=== PATIENT | male | born 1970 | race African-American/Black ===

== ENCOUNTER → 2017-11-06 | Outpatient (CLI) | payer BC ==
--- NOTE | 2017-11-07 08:00 | XCELERA REPORT ---
[address] [address] Lower Extremity Venous Evaluation Name: THOM CHERRY Age: 47 yrs Gender: Male : 1970 Patient Status: Outpatient Patient Location: Study Date: 11/06/2017 04:17 PM Procedure: Color flow and duplex imaging of the veins of the left lower extremity as well as the right Common Femoral vein. Reason For Study: LLE SWELLING Ordering Physician: KENZIE GORDON Performed By: Darshan Che Right Sided Venous Evaluation The right common femoral vein is fully compressible. Spontaneous and phasic flow is present in the right common femoral vein. Left Sided Venous Evaluation Normal vessel filling wall to wall, compression and augmentation as well as Colour flow down to the infrageniculate veins. Interpretation Summary No duplex evidence of DVT or obstruction in the left lower extremity nor in the right Common Femoral vein. : KENZIE GORDON > Morales Bach
== END ==
LOC: SP 15:58
PROVIDERS: ATTEND Podiatrist Foot & Ankle Surgery
DX: I82.402 Acute embolism and thrombosis of unspecified deep veins of left lower extremity (principal)
CPT/HCPCS: 93971

== ENCOUNTER → 2018-03-15 | Outpatient (CLI) | payer BC ==
[2018-03-15 15:36] LABS: ABSOLUTE EOSINOPHILS # (AUTO) 0.1 10^3/uL (0.0-0.6); ABSOLUTE LYMPHOCYTES (AUTO) 1.7 10^3/uL (0.5-4.7); ABSOLUTE MONOCYTES (AUTO) 0.4 10^3/uL (0.1-1.4); ABSOLUTE NEUT (AUTO) 3.6 10^3/uL (1.7-8.2); BASOPHILS % (AUTO) 0.5 % (0-2); EOSINOPHILS % (AUTO) 2.4 % (0-6); HEMATOCRIT 51.2 % (37.9-51.0); HEMOGLOBIN 17.2 g/dL (13.5-17.0); MEAN CORPUSCULAR HEMOGLOBIN 27.2 pg (27.0-33.4); MEAN CORPUSCULAR HGB CONC 33.6 g/dL (32.0-36.0); MEAN CORPUSCULAR VOLUME 81 fl (80-97); MONOCYTES % (AUTO) 6.8 % (3-13); PLATELET COUNT 200 10^3/uL (150-450); RED BLOOD COUNT 6.32 10^6/uL (4.35-5.55); RED CELL DISTRIBUTION WIDTH 15.5 % (11.5-14.0); SEGMENTED NEUTROPHILS % (AUTO) 61.3 % (42-78); TOTAL CELLS COUNTED % (AUTO) 100 %; WHITE BLOOD COUNT 5.8 10^3/uL (4.0-10.5)
[2018-03-15 15:46] LABS: APPEARANCE,URINE CLEAR; BILIRUBIN,URINE NEGATIVE (NEGATIVE); COLOR,URINE YELLOW; GLUCOSE, URINE NEGATIVE (NEGATIVE); KETONES,URINE NEGATIVE (NEGATIVE); LEUKOCYTE ESTERASE,URINE NEGATIVE (NEGATIVE); NITRITE,URINE NEGATIVE (NEGATIVE); PROTEIN,URINE NEGATIVE (NEGATIVE); URINE SPECIFIC GRAVITY 1.018
[2018-03-15 15:47] LABS: INTERNATIONAL RATION (INR) 1.13; PROTHROMBIN TIME 15.1 SEC (11.4-15.4)
[2018-03-15 15:48] LABS: PARTIAL THROMBOPLASTIN TIME 34.2 SEC (23.5-35.8)
== END ==
LOC: OD 14:41
PROVIDERS: ATTEND Pain Medicine Interventional Pain Medicine
DX: Z79.01 Long term (current) use of anticoagulants (principal)
CPT/HCPCS: 36415; 81001; 85025; 85610; 85730

== ENCOUNTER 2018-04-23 08:43 | Observation (INO) | payer BC ==
--- NOTE | 2018-04-18 10:35 | RADIOLOGY REPORT (SQ) ---
EXAM DESCRIPTION: CHEST PA/LATERAL COMPLETED DATE/TIME: 04/18/2018 10:26 am REASON FOR STUDY: PRE-OP COMPARISON: None. EXAM PARAMETERS: NUMBER OF VIEWS: two views TECHNIQUE: Digital Frontal and Lateral radiographic views of the chest acquired. RADIATION DOSE: NA LIMITATIONS: none FINDINGS: LUNGS AND PLEURA: No opacities, masses or pneumothorax. No pleural effusion. MEDIASTINUM AND HILAR STRUCTURES: No masses or contour abnormalities. HEART AND VASCULAR STRUCTURES: Heart normal size. No evidence for failure. BONES: No acute findings. HARDWARE: None in the chest. OTHER: No other significant finding. IMPRESSION: 1. NO SIGNIFICANT RADIOGRAPHIC FINDING IN THE CHEST. TECHNICAL DOCUMENTATION: JOB ID: [id number] [employer]- All Rights Reserved Reading location - IP/workstation name: [facility]
[2018-04-18 10:55] LABS: HEMATOCRIT 53.9 % (37.9-51.0); HEMOGLOBIN 18.2 g/dL (13.5-17.0); MEAN CORPUSCULAR HEMOGLOBIN 27.5 pg (27.0-33.4); MEAN CORPUSCULAR HGB CONC 33.7 g/dL (32.0-36.0); MEAN CORPUSCULAR VOLUME 82 fl (80-97); PLATELET COUNT 169 10^3/uL (150-450); RED BLOOD COUNT 6.61 10^6/uL (4.35-5.55); WHITE BLOOD COUNT 7.5 10^3/uL (4.0-10.5)
[2018-04-18 10:58] LABS: APPEARANCE,URINE SLIGHTLY-CLOUDY; BILIRUBIN,URINE NEGATIVE (NEGATIVE); COLOR,URINE YELLOW; GLUCOSE, URINE NEGATIVE (NEGATIVE); KETONES,URINE NEGATIVE (NEGATIVE); LEUKOCYTE ESTERASE,URINE NEGATIVE (NEGATIVE); NITRITE,URINE NEGATIVE (NEGATIVE); PROTEIN,URINE NEGATIVE (NEGATIVE); URINE SPECIFIC GRAVITY 1.017
[2018-04-18 10:59] LABS: INTERNATIONAL RATION (INR) 1.03
[2018-04-18 11:00] LABS: PARTIAL THROMBOPLASTIN TIME 33.7 SEC (23.5-35.8)
--- NOTE | 2018-04-18 14:41 | EKG REPORT ---
SEVERITY:- NORMAL ECG - SINUS RHYTHM : Confirmed by: Betty Avila MD 18-Apr-2018 14:39:47
[~2018-04-23 08:43] MED LIST: CEFAZOLIN 1 GM/D5W RTU 1 GM/50 ML RTUPB IV ONE; CEFAZOLIN 1 GM/D5W RTU 1 GM/50 ML RTUPB IV SCH; LACTATED RINGERS 1000 ML IV PRN; LIDOCAINE 0.5% INJ-PF (5 MG/ML) 50 ML SDV SUBCUT PRN
[2018-04-23] MEDS ORDERED: LIDOCAINE 1% INJ-PF (10 MG/ML) 30 ML SDV ONE ×2 (09:28→11:51)
[2018-04-23 09:31] LABS: ABSOLUTE EOSINOPHILS # (AUTO) 0.2 10^3/uL (0.0-0.6); ABSOLUTE LYMPHOCYTES (AUTO) 1.7 10^3/uL (0.5-4.7); ABSOLUTE MONOCYTES (AUTO) 0.5 10^3/uL (0.1-1.4); ABSOLUTE NEUT (AUTO) 3.7 10^3/uL (1.7-8.2); BASOPHILS % (AUTO) 0.5 % (0-2); EOSINOPHILS % (AUTO) 2.7 % (0-6); HEMATOCRIT 52.9 % (37.9-51.0); HEMOGLOBIN 17.8 g/dL (13.5-17.0); LYMPHOCYTES % (AUTO) 28.1 % (13-45); MEAN CORPUSCULAR HEMOGLOBIN 27.3 pg (27.0-33.4); MEAN CORPUSCULAR HGB CONC 33.7 g/dL (32.0-36.0); MEAN CORPUSCULAR VOLUME 81 fl (80-97); MONOCYTES % (AUTO) 8.2 % (3-13); PLATELET COUNT 166 10^3/uL (150-450); RED BLOOD COUNT 6.52 10^6/uL (4.35-5.55); RED CELL DISTRIBUTION WIDTH 15.1 % (11.5-14.0); SEGMENTED NEUTROPHILS % (AUTO) 60.5 % (42-78); TOTAL CELLS COUNTED % (AUTO) 100 %
[2018-04-23] MEDS ORDERED: SODIUM BICARBONATE 8.4% INJ 50 MEQ/50 ML DISP.SYRIN ONE (09:31)
[2018-04-23] MEDS ORDERED: BUPIVACAINE HCL 0.5%-EPI 1:200000 INJ/PF 30 ML VIAL ONE (09:32)
[2018-04-23] MEDS ORDERED: ALBUTEROL SULFATE 0.083% NEB 2.5 MG/3 ML AMPUL NEB ONE (09:35)
[2018-04-23 09:51] LABS: ANION GAP 9 (5-19); BLOOD UREA NITROGEN 9 mg/dL (7-20); CALCIUM 9.3 mg/dL (8.4-10.2); CARBON DIOXIDE 23 mmol/L (22-30); CHLORIDE 108 mmol/L (98-107); GLUCOSE 76 mg/dL (75-110); POTASSIUM 4.2 mmol/L (3.6-5.0); SODIUM 139.6 mmol/L (137-145)
[2018-04-23] MEDS ORDERED: FENTANYL CITRATE INJ/PF 100 MCG/2 ML AMPUL ONE ×2 (10:36→11:50)
[2018-04-23] MEDS ORDERED: MIDAZOLAM 2 MG/2 ML INJ ONE ×2 (10:37→11:50)
[2018-04-23] MEDS ORDERED: PROPOFOL INJ 200 MG/20 ML VIAL IV ONE (10:37)
[2018-04-23] MEDS ORDERED: BUPIVACAINE HCL 0.25% /EPINEPHRINE INJ/PF 30 ML SDV ONE (10:44)
[2018-04-23] MEDS ORDERED: ONDANSETRON HCL INJ/PF 4 MG/2 ML SDV IV PRN ×2 (11:43→14:09)
[2018-04-23] MEDS ORDERED: FENTANYL CITRATE INJ/PF 100 MCG/2 ML AMPUL IV PRN ×3 (11:43)
[2018-04-23] MEDS ORDERED: PROMETHAZINE HCL INJ 25 MG/1 ML VIAL IV PRN (11:43)
[2018-04-23] MEDS ORDERED: MEPERIDINE HCL/PF INJ 25 MG/1 ML DISP.SYRIN IV PRN (11:43)
[2018-04-23] MEDS ORDERED: DIPHENHYDRAMINE HCL 50 MG/ML VIAL IV PRN (11:43)
[2018-04-23] MEDS ORDERED: MORPHINE SULFATE 10 MG/ML INJ ONE (11:50)
[2018-04-23] MEDS ORDERED: FLUMAZENIL INJ 0.5 MG/5 ML VIAL ONE (13:39)
[2018-04-23] MEDS ORDERED: ONDANSETRON HCL INJ/PF 4 MG/2 ML SDV ONE (13:46)
[2018-04-23] MEDS ORDERED: CEFAZOLIN INJ 1 GM VIAL ONE (13:53)
[2018-04-23] MEDS ORDERED: OXYCODONE-ACETAMINOPHEN 5-325 MG TABLET PO PRN (14:11)
[2018-04-23] MEDS ORDERED: HYDROMORPHONE HCL INJ/PF 2 MG/ML AMPULE IV PRN (14:30)
[2018-04-23] MEDS ORDERED: ACETAMINOPHEN 1,000 MG/100 ML RTUPB IV ONE (14:32)
--- NOTE | 2018-04-23 15:06 | RADIOLOGY REPORT (SQ) ---
EXAM DESCRIPTION: L SPINE 2 VIEWS; NO CHG FLUORO COMPLETED DATE/TIME: 04/23/2018 2:40 pm REASON FOR STUDY: SPINAL STIMULATOR G89.4 CHRONIC PAIN SYNDROME COMPARISON: None. FLUOROSCOPY TIME: 6.4 minutes 16 digital radiographic images saved to PACS. TECHNIQUE: Intra-operative images acquired during surgical procedure to evaluate progress. NUMBER OF IMAGES: 16 digital radiographic images LIMITATIONS: None. FINDINGS: Intra procedural imaging and fluoro during placement of a spinal cord stimulator by Dr. Nu chakraborty. Please see the operative report for further details IMPRESSION: Intra procedural imaging and fluoro COMMENT: Quality ID [id number]: Final reports for procedures using fluoroscopy that document radiation exp osure indices, or exposure time and number of fluorographic images (if radiation exposure indices are not available) Please consult full operative report of the attending physician for description of the procedure. TECHNICAL DOCUMENTATION: JOB ID: [id number] [employer]- All Rights Reserved Reading location - IP/workstation name: [facility]
--- NOTE | 2018-04-23 15:06 | RADIOLOGY REPORT (SQ) ---
EXAM DESCRIPTION: L SPINE 2 VIEWS; NO CHG FLUORO COMPLETED DATE/TIME: 04/23/2018 2:40 pm REASON FOR STUDY: SPINAL STIMULATOR G89.4 CHRONIC PAIN SYNDROME COMPARISON: None. FLUOROSCOPY TIME: 6.4 minutes 16 digital radiographic images saved to PACS. TECHNIQUE: Intra-operative images acquired during surgical procedure to evaluate progress. NUMBER OF IMAGES: 16 digital radiographic images LIMITATIONS: None. FINDINGS: Intra procedural imaging and fluoro during placement of a spinal cord stimulator by Dr. Nu chakraborty. Please see the operative report for further details IMPRESSION: Intra procedural imaging and fluoro COMMENT: Quality ID [id number]: Final reports for procedures using fluoroscopy that document radiation exp osure indices, or exposure time and number of fluorographic images (if radiation exposure indices are not available) Please consult full operative report of the attending physician for description of the procedure. TECHNICAL DOCUMENTATION: JOB ID: [id number] [employer]- All Rights Reserved Reading location - IP/workstation name: [facility]
[2018-04-23] MEDS: OXYCODONE HCL IR 5 MG TABLET PO PRN (15:58)
[2018-04-23] MEDS ORDERED: HYDROCHLOROTHIAZIDE 25 MG TABLET PO PRN (16:13)
[2018-04-23] MEDS ORDERED: DIAZEPAM 5 MG TABLET PO PRN (16:13)
[2018-04-23] MEDS ORDERED: TESTOSTERONE CYPIONATE 200 MG IM PRN (16:13)
[2018-04-23] MEDS: HYOSCYAMINE SULFATE 0.125 MG TABLET PO SCH (17:08)
[2018-04-23] MEDS: PHENYTOIN SODIUM EXTENDED 100 MG CAPSULE PO SCH (17:08)
[2018-04-23] MEDS: ALPRAZOLAM 0.5 MG TABLET PO SCH (17:08)
[2018-04-23] MEDS: OXYCODONE HCL SR 40 MG TABLET PO SCH (21:50)
[2018-04-23] MEDS: LEVETIRACETAM 500 MG TABLET PO SCH (21:51)
[2018-04-23] MEDS: CEFAZOLIN 1 GM/D5W RTU 1 GM/50 ML RTUPB IV SCH (21:53)
[2018-04-23] MEDS ORDERED: NICOTINE 7 MG/24 HR PATCH.TD24 TD ONE (22:00)
[2018-04-23] MEDS ORDERED: (PENDING PHARMACY ID) (Doxepin Hcl [Silenor] 6 MG) PO SCH (22:00)
--- NOTE | 2018-04-24 03:56 | OPERATIVE REPORT E ---
Operative Report NAME: THOM CHERRY : 1970 AGE: 47Y DATE OF SURGERY: 04/23/2018 ROOM: 210 PREOPERATIVE DIAGNOSES: 1. LEFT LOWER EXTREMITY COMPLEX REGIONAL PAIN SYNDROME. 2. LUMBAR RADICULOPATHY. 3. CHRONIC PAIN SYNDROME. POSTOPERATIVE DIAGNOSES: 1. LEFT LOWER EXTREMITY COMPLEX REGIONAL PAIN SYNDROME. 2. LUMBAR RADICULOPATHY. 3. CHRONIC PAIN SYNDROME. OPERATION: Implantation of dual Octrode percutaneous spinal cord stimulator system and implantable pulse generator from [employer]. OPERATIVE FINDINGS: Dual Octrode leads placed from the bottom of T7 vertebral body to the top of the T9 vertebral body. SURGEON: WILLEM GRANADOS M.D. ASSISTING: Sharan Aguayo M.D. ANESTHESIA: Local with sedation. PREOPERATIVE ANTIBIOTICS: Ancef 1 gram. ESTIMATED BLOOD LOSS: 10 mL. INTRAVENOUS FLUIDS: One liter of crystalloid solution. 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 The patient underwent trial spinal cord stimulation with excellent results. He opted to proceed with permanent implantation. Risks and benefits were discussed with patient in detail including but not limited to bleeding, bruising, infection, injury to nerves, arteries, veins, loss of bowel or bladder function, paralysis, and potentially even . The patient expressed understanding and agreed to proceed. PROCEDURE: The patient was accompanied to the operating suite by Anesthesia staff. The patient was placed in prone position. All pressure points were checked and padded. Standard ASA lines and monitors were applied. The patient was prepped and draped in sterile fashion using chlorhexidine gluconate solution and an Ioban drape. Ancef 1 gram was given preoperatively. Sedation was administered by Anesthesia. A C-arm was draped into the field. The planned site for entry at L1-L2 was marked in the midline for midline incision and additional incision site was marked over the right flank for implantable pulse generator placement. A time-out procedure was performed as per [facility] protocol. The skin was anesthetized using 1% buffered lidocaine and a 25-gauge needle at both incisions sites. Deeper tissues were infiltrated with 0.25% bupivacaine with 1:100,000 epinephrine. An incision was made with a 15-blade scalpel in both locations. Subsequently blunt and electrocautery dissection was utilized in the midline to expose the prevertebral fascia. Adequate hemostasis was confirmed. Subsequently, a 3.5 inch, 25-gauge spinal needle was advanced under intermittent AP fluoroscopic guidance to the L1-2 lamina. This was infiltrated with 1% buffered lidocaine as well. A 5-inch Tuohy needle provided by the [employer] kit was advanced under intermittent AP and lateral fluoroscopic guidance to the L1-2 interspace. Loss of resistance to normal saline was utilized to gain access to the epidural space of this level. Aspiration was negative for heme or CSF. The lead provided by the [employer] kit was advanced easily into the posterior epidural space with posterior placement confirmed on lateral fluoroscopy. The lead was advanced to the bottom of the T7 vertebral body. The procedure was performed in the exact same fashion on the left side with a 5-inch, 16-gauge Tuohy needle advanced under intermittent AP and lateral fluoroscopic guidance to the epidural space at L1-2 in the left paramedian approach. Both leads were subsequently confirmed to be in the posterior epidural space. The leads were attached to the programming device which was thrown off the field to the [employer] representative. At this point, the patient was awakened and testing was performed on the leads. All impedances were noted to be excellent. The patient had coverage of pain with the stimulation in all painful areas. At this juncture, the patient was allowed to go back to sleep. A pursestring suture was placed in the fascia with 0 Mersilene and an additional stay suture planned for the anchoring system placed with 0 Mersilene as well. The needle was removed over the lead and the needle and Stylette were removed from the field under continuous fluoroscopic guidance to ensure no lead migration. Subsequently, the silastic anchor was advanced over the right lead and placed in the fascia. The pursestring suture was tied at this point. The pursestring suture was affixed to the anchoring system. This was performed on the opposite lead as well in the exact same fashion. Additional stay sutures were placed around the distal end of the anchoring device. A hex wrench was then utilized to ensure adequate cinching of the leads. At this point, attention was turned to the right buttock pocket. A pocket was created using blunt and Bovie dissection adequately sized for the [employer] implantable pulse generator. A tract was anesthetized from the midline incision to the buttock pocket and subsequently tunneling was performed using the tunneling device provided by the [employer] kit. The leads were advanced to the buttock pocket and attached to the implantable pulse generator. Testing was performed at this juncture and all impedances were noted to be excellent. Both incision sites were copiously irrigated with dilute Betadine solution. A 3-0 Vicryl suture was used to affix the leads flat against the fascia. Subsequently closure ensued. Closure in the midline was a triple layer closure. Then 3-0 Vicryl was used in interrupted vertical mattress fashion in 2 layers and then the skin was closed with shelby. The buttock was closed in a single layer using 3-0 Vicryl suture in interrupted fashion and inverted vertical mattress suture. The skin was closed with Dermabond tape and glue. The deeper tissues were infiltrated with 0.25% bupivacaine with epinephrine. Dressings were placed. The patient was then accompanied to the recovery room in stable condition. He will be monitored for the next 23 hours given his history of morbid obesity, obstructive sleep apnea and opioids given in the case today. He will be discharged in the morning. He will follow up with [facility] within the next 72 hours. DICTATING PHYSICIAN: WILLEM GRANADOS M.D. [id number] [id number] PHY#: [id number] ID: [id number] JOB#: [id number] ACCT: [id number] cc:WILLEM GRANAODS M.D. > MTDD
[2018-04-24] MEDS: CEFAZOLIN 1 GM/D5W RTU 1 GM/50 ML RTUPB IV SCH (05:18)
[2018-04-24] MEDS: OXYCODONE HCL IR 5 MG TABLET PO PRN (05:28)
[2018-04-24] MEDS ORDERED: DIPHENHYDRAMINE HCL 50 MG CAPSULE PO PRN (06:02)
[2018-04-24] MEDS ORDERED: NICOTINE 21 MG/24 HR PATCH.TD24 TD ONE (06:15)
[2018-04-24] MEDS ORDERED: OXYCODONE-ACETAMINOPHEN 5-325 MG TABLET PO PRN (08:00)
[2018-04-24] MEDS ORDERED: OXYCODONE HCL IR 5 MG TABLET PO PRN (08:00)
[2018-04-24] MEDS: OXYCODONE HCL SR 40 MG TABLET PO SCH (09:07)
[2018-04-24] MEDS: LEVETIRACETAM 500 MG TABLET PO SCH (09:07)
[2018-04-24] MEDS: HYOSCYAMINE SULFATE 0.125 MG TABLET PO SCH (09:07)
[2018-04-24] MEDS: PHENYTOIN SODIUM EXTENDED 100 MG CAPSULE PO SCH (09:08)
[2018-04-24] MEDS: ALPRAZOLAM 0.5 MG TABLET PO SCH (09:08)
[2018-04-24] MEDS ORDERED: NICOTINE 7 MG/24 HR PATCH.TD24 TD SCH (10:00)
[2018-04-24] MEDS ORDERED: HYOSCYAMINE 0.125 MG PO SCH (10:00)
[2018-04-24 10:19] VITALS: BP 136/89
[2018-04-25] MEDS ORDERED: NICOTINE 21 MG/24 HR PATCH.TD24 TD SCH (10:00)
== END 2018-04-24 12:25 | disposition home or self-care (01) ==
LOC: OROUT 08:43 → 2N 13:40
PROVIDERS: ADMIT Pain Medicine Interventional Pain Medicine; ATTEND Pain Medicine Interventional Pain Medicine
PROC: 00HU3MZ Insertion of Neurostimulator Lead into Spinal Canal, Percutaneous Approach (ICD-10-PCS; 2018-04-23)
PROC: 0JH70EZ Insertion of Multiple Array Rechargeable Stimulator Generator into Back Subcutaneous Tissue and Fascia, Open Approach (ICD-10-PCS; principal; 2018-04-23 11:30)
DX: M54.16 Radiculopathy, lumbar region (principal); G89.4 Chronic pain syndrome; M19.90 Unspecified osteoarthritis, unspecified site; Z79.899 Other long term (current) drug therapy; Z79.891 Long term (current) use of opiate analgesic
CPT/HCPCS: 63685; 63650; 93005; 36415 ×2; 85025; 85027; 85610; 85730; 80048; 81001; 71046; 72100; 93010; G0378 ×2; G0379; C1820; C1713; J3490 ×7; J2250; J0690 ×3; J3010; J2270; J2405; J2704; J0131; 1936